=== PATIENT | male | born 1970 | race Hispanic/Latino ===

== ENCOUNTER → 2024-06-04 | Day surgery (SDC) | payer OTHER ==
[2024-06-03 14:40] LABS: BASOPHILS # (AUTO) 0.1 (0.0-0.1); BASOPHILS % 0.7 % (0.0-1.0); EOSINOPHILS # (AUTO) 0.2 (0.0-0.4); HEMATOCRIT 46.8 % (38.2-49.6); HEMOGLOBIN 15.6 g/dL (14.0-18.0); LYMPHOCYTES # (AUTO) 3.3 (1.0-3.2); LYMPHOCYTES % 36.2 % (18.0-39.1); MEAN CORPUSCULAR HGB CONC 33.3 g/dL (31-35); MEAN CORPUSCULAR VOLUME 96.1 fL (81-99); MONOCYTES # (AUTO) 0.6 (0.2-0.8); MONOCYTES % 6.7 % (4.4-11.3); NEUTROPHILS # (AUTO) 4.9 (2.1-6.9); NEUTROPHILS % 54.2 % (38.7-80.0); PLATELET COUNT 184 x10e3/uL (140-360); RED BLOOD COUNT 4.87 x10e6/uL (4.3-5.7); RED CELL DISTRIBUTION WIDTH 12.2 % (11.7-14.4); WHITE BLOOD COUNT 8.99 x10e3/uL (4.8-10.8)
[2024-06-03 15:07] LABS: ANION GAP 13.9 mmol/L (8-16); CALCIUM 9.4 mg/dL (8.4-10.2); CREATININE, SERUM 0.8 mg/dL (0.72-1.25); POTASSIUM 3.9 mmol/L (3.5-5.1)
[~2024-06-04] MED LIST: ACETAMINOPHEN 1000 MG/100 ML 100 ML IV ONE; ASPIRIN EC81 MG PO; ATORVASTATIN CA20 MG PO; B12 ACTIVE1000 MCG PO; BIOTIN1 MG PO; FAMOTIDINE 20 MG/2 ML VIAL IV ONE; FENTANYL CITRATE/PF 100MCG/2 ML INJ ONE; GLIPIZIDE ER5 MG PO; HYDROCODON-ACE1 EA11 PO; JARDIANCE25 MG PO; LIDOCAINE HCL 2% LOCAL INJ 5 ML SDV VIAL INJ ONE; LISINOPRIL2.5 MG PO; MIDAZOLAM HCL 2 MG/2 ML VIAL ONE; ONDANSETRON HCL INJ 2MG/ML 2ML 2 MG/ML VIAL ONE; PROPOFOL IV EMULSION 10 MG/ML 20 ML VIAL ONE; ROCURONIUM BROMIDE 1 ML IV ONE; SEVOFLURANE INHAL SOLN 250 ML PEN BTL ONE; SUCCINYLCHOLINE CHLORIDE 20 MG/ML 10ML VIAL ONE; SUGAMMADEX SODIUM 200 MG/2 ML VIAL IV ONE
[2024-06-04] MEDS: LACTATED RINGER'S 1,000 ML ONE (11:30)
[2024-06-04] MEDS: CEFAZOLIN SODIUM 2 GM ONE (11:30)
[2024-06-04 14:25] VITALS: BP 118/67; PULSE 70; RESP 16; O2SAT 96
== END | disposition home or self-care (01) ==
LOC: OR 11:07
PROVIDERS: ATTEND Surgery
DX: K43.6 Other and unspecified ventral hernia with obstruction, without gangrene (principal); E11.9 Type 2 diabetes mellitus without complications; I10 Essential (primary) hypertension; E78.5 Hyperlipidemia, unspecified; M06.9 Rheumatoid arthritis, unspecified; M17.12 Unilateral primary osteoarthritis, left knee; E66.3 Overweight; Z01.810 Encounter for preprocedural cardiovascular examination; Z01.812 Encounter for preprocedural laboratory examination; Z01.818 Encounter for other preprocedural examination; Z79.82 Long term (current) use of aspirin; Z79.84 Long term (current) use of oral hypoglycemic drugs; Z79.899 Other long term (current) drug therapy; Z68.35 Body mass index [BMI] 35.0-35.9, adult
CPT/HCPCS: 36415; 49592; 71046; 80048; 85025; 93005; J0131; J0330; J2003; J2250; J2405; J2704; J3010; J7121